=== PATIENT | female | born 1990 | race African-American/Black ===

== ENCOUNTER → 2016-08-06 | Outpatient (CLI) | payer MEDICAID ==
[~2016-08-06] MED LIST: AMOX500T PO; ASPI325T PO; THERPAK3
== END ==
LOC: HPND 09:39
PROVIDERS: ATTEND Obstetrics & Gynecology
DX: O28.9 Unspecified abnormal findings on antenatal screening of mother (principal)
CPT/HCPCS: 76811

== ENCOUNTER → 2016-08-20 | Outpatient (CLI) | payer MEDICAID ==
--- NOTE | 2016-08-21 13:42 | EKG ---
Date Performed: 08/20/2016 Time Performed: 13:05:22 PTAGE: 26 years EKG: Sinus rhythm . Septal T wave changes are nonspecific Borderline ECG NO PREVIOUS TRACING DOCTOR: Shivani Garcia Interpretating Date/Time 08/21/2016 13:41:52
== END ==
LOC: HCAV 12:46
PROVIDERS: ATTEND Obstetrics & Gynecology
DX: Z68.42 Body mass index [BMI] 45.0-49.9, adult (principal); R94.31 Abnormal electrocardiogram [ECG] [EKG]
CPT/HCPCS: 93005

== ENCOUNTER → 2016-09-11 | Outpatient (CLI) | payer MEDICAID | LOC: HPND 12:50 | PROVIDERS: ATTEND Obstetrics & Gynecology | DX: O99.512 Diseases of the respiratory system complicating pregnancy, second trimester (principal); J45.40 Moderate persistent asthma, uncomplicated; O99.212 Obesity complicating pregnancy, second trimester; O28.9 Unspecified abnormal findings on antenatal screening of mother; Z3A.22 22 weeks gestation of pregnancy; Z68.42 Body mass index [BMI] 45.0-49.9, adult | CPT/HCPCS: 76816 ==